=== PATIENT | male | born 1950 | race Caucasian/White ===

== ENCOUNTER 2022-02-23 17:37 | Emergency (ER) | payer BC ==
[~2022-02-23] VITALS: Ht 172.7 cm; Wt 96.6 kg
[2022-02-23 17:44] VITALS: BP 100/58
--- NOTE | 2022-02-23 18:03 | ED Respiratory ---
General Stated Complaint: SOB/COUGH Source: patient (SOMEWHAT VAGUE HISTORIAN) History of Present Illness Date Seen by Provider: Feb 23, 2022 Time Seen by Provider: 17:49 Initial Comments PT ARRIVES VIA POV FROM HOME IN [place] STATES HE HAS HAD COUGH AND A LITTLE SHORTNESS OF BREATH OFF AND ON SINCE AUGUST 2021 SYMPTOMS ARE NO DIFFERENT TONIGHT IN ANY WAY PT IS UNABLE TO STATE WHEN OR IF SYMPTOMS WORSENED. IS UNCLEAR WHAT PROMPTED HIM TO COME TO THIS ER TONIGHT. PT DID TEST + FOR INFLUENZA A ON 01/28/22, WITH SYMPTOMS BEGINNING AROUND 01/25/22 NO FEVER AT ANY TIME COUGH IS NON-PRODUCTIVE NO CHEST PAIN OR PAIN WITH BREATHING NO SWELLING IN LEGS / FEET PT HAD LAB AND CXR DONE LAST WEEK AT [facility] PT HAS BEEN ON DOXYCYCLINE AND STEROIDS PT HAS INSULIN DEPENDENT DIABETES AND MYASTHENIA GRAVIS LAST SAW HIS DRShivam AT FOR MYASTHENIA GRAVIS LAST AUGUST. HIS MESTINON DOSE WAS INCREASED AT THAT TIME. DUE TO SOME PROBLEMS SWALLOWING. HAS NOT FOLLOWED UP WITH HIM SINCE. STATES HIS MYASTHENIA GRAVIS DR WANTED TO HAVE TESTS DONE, THEREFORE: SINCE AUGUST, HAS HAD MULTIPLE TESTS DONE, INCLUDING A STRESS TEST, EGD, PULMONARY FUNCTION TESTS, SPEECH THERAPY, OTHERS. PT HAS HAD COVID-19 VACCINE X 3, BUT NO FLU VACCINE. PCP: [facility] Allergies and Home Medications Allergies Coded Allergies: clindamycin (Verified Allergy, Unknown, 02/23/22) gentamicin (Verified Allergy, Unknown, 02/23/22) latex (Verified Allergy, Unknown, 02/23/22) sulfamethoxazole (Verified Allergy, Unknown, 02/23/22) trimethoprim (Verified Allergy, Unknown, 02/23/22) Patient Home Medication List Home Medication List Reviewed: Yes Review of Systems Review of Systems Constitutional: no symptoms reported EENTM: no symptoms reported Respiratory: see HPI, cough, short of breath Cardiovascular: no symptoms reported Gastrointestinal: no symptoms reported Genitourinary: no symptoms reported Musculoskeletal: no symptoms reported Skin: no symptoms reported Psychiatric/Neurological: No Symptoms Reported Hematologic/Lymphatic: No Symptoms Reported Immunological/Allergic: no symptoms reported Past Tmahruj-Uniabi-Qrfbbo Hx Patient Social History Tobacco Use?: No Smoking Status: Never a Smoker Substance use?: No Alcohol Use?: No Past Medical History Respiratory: Yes (ONGOING COUGH AND DYSPNEA--PRESCRIBED INHALERS, NO DX) Cardiac: Yes High Cholesterol, Hypertension Neurological: Yes (MYASTHENIA GRAVIS. PERIPHERAL NEUROPATHY) Neuropathy Genitourinary: No Gastrointestinal: Yes Gastroesophageal Reflux Musculoskeletal: No Endocrine: Yes Diabetes, Insulin dep HEENT: Yes (DYSPHAGIA DUE TO MYASTHENIA GRAVIS) Dysphagia Cancer: No Psychosocial: No Integumentary: No Blood Disorders: No Physical Exam Vital Signs - First Documented 02/23/22 17:44 Pulse 93 Resp 22 B/P (MAP) 100/58 (72) Pulse Ox 92 O2 Delivery Room Air Capillary Refill : Height: '" Weight: lbs. oz. kg; BMI Method: General Appearance: WD/WN, no apparent distress, other (DOES NOT APPEAR TO BE IN ANY DISCOMFORT OR DISTRESS. NO COUGH OR DYSPNEA. TEXTING/PLAYING ON PHONE. 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, no motor/sensory deficits, alert, normal mood/affect, oriented x 3 Skin: normal color, warm/dry Progress/Results/Core Measures Suspected Sepsis SIRS Temperature: Pulse: Respiratory Rate: Laboratory Tests 02/23/22 18:03: White Blood Count 6.4 Blood Pressure / Mean: Laboratory Tests 02/23/22 18:03: Creatinine 1.26, Platelet Count 206, Total Bilirubin 0.5 Results/Orders Lab Results Laboratory Tests Test 02/23/22 18:03 02/23/22 18:13 Range/Units White Blood Count 6.4 4.3-11.0 10^3/uL Red Blood Count 4.75 4.30-5.52 10^6/uL Hemoglobin 15.2 13.3-17.7 g/dL Hematocrit 44 40-54 % Mean Corpuscular Volume 93 80-99 fL Mean Corpuscular Hemoglobin 32 25-34 pg Mean Corpuscular Hemoglobin Concent 35 32-36 g/dL Red Cell Distribution Width 14.5 10.0-14.5 % Platelet Count 206 130-400 10^3/uL Mean Platelet Volume 8.9 L 9.0-12.2 fL Immature Granulocyte % (Auto) 1 % Neutrophils (%) (Auto) 60 42-75 % Lymphocytes (%) (Auto) 17 12-44 % Monocytes (%) (Auto) 11 0-12 % Eosinophils (%) (Auto) 11 H 0-10 % Basophils (%) (Auto) 1 0-10 % Neutrophils # (Auto) 3.8 1.8-7.8 10^3/uL Lymphocytes # (Auto) 1.1 1.0-4.0 10^3/uL Monocytes # (Auto) 0.7 0.0-1.0 10^3/uL Eosinophils # (Auto) 0.7 H 0.0-0.3 10^3/uL Basophils # (Auto) 0.0 0.0-0.1 10^3/uL Immature Granulocyte # (Auto) 0.1 0.0-0.1 10^3/uL Sodium Level 132 L 135-145 MMOL/L Potassium Level 4.3 3.6-5.0 MMOL/L Chloride Level 98 98-107 MMOL/L Carbon Dioxide Level 20 L 21-32 MMOL/L Anion Gap 14 5-14 MMOL/L Blood Urea Nitrogen 27 H 7-18 MG/DL Creatinine 1.26 0.60-1.30 MG/DL Estimat Glomerular Filtration Rate 62 BUN/Creatinine Ratio 21 Glucose Level 208 H 70-105 MG/DL Calcium Level 9.1 8.5-10.1 MG/DL Corrected Calcium 9.5 8.5-10.1 MG/DL Magnesium Level 1.8 1.6-2.4 MG/DL Total Bilirubin 0.5 0.1-1.0 MG/DL Aspartate Amino Transf (AST/SGOT) 14 5-34 U/L Alanine Aminotransferase (ALT/SGPT) 21 0-55 U/L Alkaline Phosphatase 88 40-136 U/L Troponin I < 0.028 <0.028 NG/ML B-Type Natriuretic Peptide < 10.0 <100.0 PG/ML Total Protein 7.4 6.4-8.2 GM/DL Albumin 3.5 3.2-4.5 GM/DL SARS-CoV-2 RNA (RT-PCR) Not Detected Not Detecte Urine Color YELLOW Urine Clarity CLEAR Urine pH 6.0 5-9 Urine Specific [place] 1.010 L 1.016-1.022 Urine Protein NEGATIVE NEGATIVE Urine Glucose (UA) 3+ H NEGATIVE Urine Ketones NEGATIVE NEGATIVE Urine Nitrite NEGATIVE NEGATIVE Urine Bilirubin NEGATIVE NEGATIVE Urine Urobilinogen 0.2 < = 1.0 MG/DL Urine Leukocyte Esterase NEGATIVE NEGATIVE Urine RBC (Auto) NEGATIVE NEGATIVE Urine RBC NONE /HPF Urine WBC NONE /HPF Urine Crystals PRESENT H /LPF Urine Amorphous Sediment RARE DANIS URATES H /LPF Urine Bacteria NEGATIVE /HPF Urine Casts NONE /LPF Urine Mucus NEGATIVE /LPF Urine Culture Indicated NO My Orders Orders - SHIVA LEACH DO Ed Iv/Invasive Line Start (02/23/22 17:48) Ekg Tracing (02/23/22 17:48) O2 (02/23/22 17:48) Monitor-Rhythm Ecg Trace Only (02/23/22 17:48) Bnp [place] (02/23/22 17:48) Cbc With Automated Diff (02/23/22 17:48) Comprehensive Metabolic Panel (02/23/22 17:48) Magnesium (02/23/22 17:48) Ua Culture If Indicated (02/23/22 17:48) Troponin I Meme (02/23/22 17:48) Chest 1 View, Ap/Pa Only (02/23/22 17:48) Covid 19 Inhouse Test (02/23/22 17:48) Isolation Central Supply Req (02/23/22 17:48) Ct Angio Chest W (02/23/22 19:07) Ed Iv/Invasive Line Start (02/23/22 19:07) Ed Iv/Invasive Line Start (02/23/22 19:07) Ns Iv 1000 Ml (Sodium Chloride 0.9%) (02/23/22 19:15) Iohexol Injection (Omnipaque 350 Mg/Ml 1 (02/23/22 19:15) Ns (Ivpb) (Sodium Chloride 0.9% Ivpb Bag (02/23/22 19:15) Medications Given in ED Current Medications Medications Dose Ordered Sig/Brandy Route Start Time Stop Time Status Last Admin Dose Admin Iohexol 100 ml ONCE ONCE IV 02/23/22 19:15 02/23/22 19:16 DC 02/23/22 19:26 80 ML Sodium Chloride 100 ml ONCE ONCE IV 02/23/22 19:15 02/23/22 19:16 DC 02/23/22 19:26 80 ML Vital Signs/I&O 02/23/22 02/23/22 02/23/22 17:44 17:44 19:05 Pulse 93 Resp 22 B/P (MAP) 100/58 (72) Pulse Ox 92 97 O2 Delivery Room Air Room Air Room Air Capillary Refill : Progress Note : Progress Note COVID TESTING DONE NO COUGH NO DYSPNEA NO HYPOXIA--O2 SATS 92-94% ON ROOM AIR NO FEVER NO CHEST PAIN COMPLETELY ASYMPTOMATIC FOR ENTIRE ER STAY ECG Initial ECG Impression Date: Feb 23, 2022 Initial ECG Impression Time: 18:07 Initial ECG Rate: 87 Initial ECG Rhythm: Normal Sinus Initial ECG Comparisson: No Previous ECG Available Diagnostic Imaging Comments CXR--PER RADIOLOGIST REPORT AT 1920 FINDINGS: The cardiac silhouette is at the upper limits of normal in size. No significant pulmonary vascular congestion. Mild diffuse interstitial opacities are noted, greatest within the mid and lower lungs. No significant pleural effusion. No pneumothorax. No acute osseous abnormality. IMPRESSION: Age-indeterminate bilateral pulmonary interstitial opacities. This could relate to background chronic interstitial lung disease. Alternatively this could relate to a interstitial pneumonia. Interstitial edema felt less likely given lack of pulmonary vascular congestion and pleural fluid. CT CHEST ANGIOGRAM--PER RADIOLOGIST REPORT AT 1945 FINDINGS: Left hilar lymph nodes are mildly prominent measuring 1.2 cm in short dimension. Additional mediastinal and right hilar lymph nodes are at the upper limits of normal in size. Mild scattered vascular calcifications without aneurysmal dilatation of the thoracic aorta. The heart is within normal limits in size. Epicardial fat pads are present. No pericardial effusion. No significant pleural effusion. The trachea is patent. No pneumothorax. Mild background emphysematous changes are present with mild reticular opacities and interstitial opacities throughout the lungs bilaterally. Subpleural 6 mm left lower lobe pulmonary nodule is present. No significant honeycombing within the lung bases. Calcified granuloma within the right upper lobe. The trachea is patent. 0.6 cm right upper lobe pulmonary nodule is noted medially, series 3, image 53. No significant filling defect within the central or segmental pulmonary arteries. The minimally visualized upper abdomen is unremarkable. No acute osseous abnormality with scattered osseous degenerative changes present. IMPRESSION: No significant pulmonary embolus. Mild diffuse bilateral interstitial and reticular opacities superimposed upon mild background emphysematous changes. Interstitial opacities are favored to relate to developing chronic interstitial lung disease. Recommend continued radiographic follow-up. Left hilar lymph node is mildly enlarged. 6 mm bilateral pulmonary nodules. A followup CT of the chest is recommended in one year to ensure stability. Reviewed: Reviewed by Me Departure Impression Primary Impression: CHRONIC SUBJECTIVE DYSPNEA Additional Impressions: Myasthenia gravis SUSPECTED INTERSTITIAL LUNG DISEASE BY CT SCAN Disposition: HOME, SELF-CARE Condition: Stable Departure-Patient Inst. Decision time for Depature: 19:47 Referrals: [facility] (PCP/Family) Primary Care Physician Patient Instructions: Interstitial Lung Disease, Myasthenia Gravis (DC) Add. Discharge Instructions: CONTINUE YOUR CURRENT MEDICATIONS PRESCRIBED FOLLOW UP WITH [facility] THIS WEEK FOR FURTHER CARE SHIVA LEACH DO Feb 23, 2022 18:03
[2022-02-23 18:14] LABS: BASOPHILS % (AUTO) 1 % (0-10); EOSINOPHILS # (AUTO) 0.7 10^3/uL (0.0-0.3); EOSINOPHILS % (AUTO) 11 % (0-10); HEMATOCRIT 44 % (40-54); HEMOGLOBIN 15.2 g/dL (13.3-17.7); LYMPHOCYTES # (AUTO) 1.1 10^3/uL (1.0-4.0); LYMPHOCYTES % (AUTO) 17 % (12-44); MEAN CORPUSCULAR HEMOGLOBIN 32 pg (25-34); MEAN CORPUSCULAR HGB CONC 35 g/dL (32-36); MEAN CORPUSCULAR VOLUME 93 fL (80-99); MEAN PLATELET VOLUME 8.9 fL (9.0-12.2); MONOCYTES # (AUTO) 0.7 10^3/uL (0.0-1.0); MONOCYTES % (AUTO) 11 % (0-12); NEUTROPHILS # (AUTO) 3.8 10^3/uL (1.8-7.8); NEUTROPHILS % (AUTO) 60 % (42-75); PLATELET COUNT 206 10^3/uL (130-400); WHITE BLOOD COUNT 6.4 10^3/uL (4.3-11.0)
[2022-02-23 18:17] LABS: BILIRUBIN,URINE NEGATIVE (NEGATIVE); CLARITY,URINE CLEAR; COLOR,URINE YELLOW; GLUCOSE, URINE (UA) 3+ (NEGATIVE); KETONES,URINE NEGATIVE (NEGATIVE); LEUKOCYTE ESTERASE ,URINE NEGATIVE (NEGATIVE); NITRITE,URINE NEGATIVE (NEGATIVE); PROTEIN,URINE NEGATIVE (NEGATIVE)
[2022-02-23 18:22] LABS: ALBUMIN 3.5 GM/DL (3.2-4.5); CHLORIDE 98 MMOL/L (98-107); POTASSIUM 4.3 MMOL/L (3.6-5.0); SODIUM 132 MMOL/L (135-145)
[2022-02-23 18:23] LABS: CALCIUM 9.1 MG/DL (8.5-10.1)
[2022-02-23 18:24] LABS: GLUCOSE 208 MG/DL (70-105); TOTAL PROTEIN 7.4 GM/DL (6.4-8.2)
[2022-02-23 18:25] LABS: AMORPHOUS SEDIMENT,UR RARE AMOR URATES /LPF; BACTERIA,URINE NEGATIVE /HPF
[2022-02-23 18:25] LABS: CARBON DIOXIDE 20 MMOL/L (21-32)
[2022-02-23 18:26] LABS: BILIRUBIN,TOTAL 0.5 MG/DL (0.1-1.0)
[2022-02-23 18:28] LABS: ALKALINE PHOSPHATASE 88 U/L (40-136); CREATININE SERUM 1.26 MG/DL (0.60-1.30); GFR ESTIMATED 62
[2022-02-23 18:29] LABS: BUN/CREATININE RATIO 21
[2022-02-23 18:31] LABS: ALANINE AMINOTRANSFERASE 21 U/L (0-55); MAGNESIUM 1.8 MG/DL (1.6-2.4)
[2022-02-23] MEDS ORDERED: IOHEXOL 350 MG/ML 100 ML (OMNIPAQUE 350) VIAL IV ONE (19:15)
[2022-02-23] MEDS ORDERED: NS 100 ML (IVPB) BAG IV ONE (19:15)
[2022-02-23] MEDS ORDERED: NS IV 1000 ML 1,000 ML IV SCH (19:15)
--- NOTE | 2022-02-23 19:16 | Diagnostic Imaging Report ---
INDICATION: Cough, dyspnea COMPARISON: None available TECHNIQUE: Single radiograph of the chest dated 02/23/2022. FINDINGS: The cardiac silhouette is at the upper limits of normal in size. No significant pulmonary vascular congestion. Mild diffuse interstitial opacities are noted, greatest within the mid and lower lungs. No significant pleural effusion. No pneumothorax. No acute osseous abnormality. IMPRESSION: Age-indeterminate bilateral pulmonary interstitial opacities. This could relate to background chronic interstitial lung disease. Alternatively this could relate to a interstitial pneumonia. Interstitial edema felt less likely given lack of pulmonary vascular congestion and pleural fluid. Dictated by: Dictated on workstation # [id number]
--- NOTE | 2022-02-23 19:43 | Diagnostic Imaging Report ---
PROCEDURE: CT angiography of the chest with contrast. TECHNIQUE: Multiple contiguous axial images were obtained through the chest after uneventful bolus administration of intravenous contrast. 3D reconstructed CTA MIP acquisitions were also performed. Auto Exposure Controls were utilized during the CT exam to meet ALARA standards for radiation dose reduction. INDICATION: Pulmonary embolism, cough, shortness of air. COMPARISON: Radiographs from same date FINDINGS: Left hilar lymph nodes are mildly prominent measuring 1.2 cm in short dimension. Additional mediastinal and right hilar lymph nodes are at the upper limits of normal in size. Mild scattered vascular calcifications without aneurysmal dilatation of the thoracic aorta. The heart is within normal limits in size. Epicardial fat pads are present. No pericardial effusion. No significant pleural effusion. The trachea is patent. No pneumothorax. Mild background emphysematous changes are present with mild reticular opacities and interstitial opacities throughout the lungs bilaterally. Subpleural 6 mm left lower lobe pulmonary nodule is present. No significant honeycombing within the lung bases. Calcified granuloma within the right upper lobe. The trachea is patent. 0.6 cm right upper lobe pulmonary nodule is noted medially, series 3, image 53. No significant filling defect within the central or segmental pulmonary arteries. The minimally visualized upper abdomen is unremarkable. No acute osseous abnormality with scattered osseous degenerative changes present. IMPRESSION: No significant pulmonary embolus. Mild diffuse bilateral interstitial and reticular opacities superimposed upon mild background emphysematous changes. Interstitial opacities are favored to relate to developing chronic interstitial lung disease. Recommend continued radiographic follow-up. Left hilar lymph node is mildly enlarged. 6 mm bilateral pulmonary nodules. A followup CT of the chest is recommended in one year to ensure stability. Dictated by: Dictated on workstation # [id number]
== END 2022-02-23 20:27 | disposition home or self-care (01) ==
LOC: ER 17:41
DX: R06.09 Other forms of dyspnea (principal); G70.00 Myasthenia gravis without (acute) exacerbation; Z91.040 Latex allergy status; Z20.822 Contact with and (suspected) exposure to COVID-19
CPT/HCPCS: 36415; 71045; 71275; 80053; 81000; 83735; 83880; 84484; 85025; 87636; 93005; 93041